=== PATIENT | male | born 1955 | race Two or more races ===

== ENCOUNTER 2018-11-19 10:43 | Inpatient (IN) | payer BC ==
[~2018-11-19] VITALS: Ht 165.1 cm; Wt 88.5 kg
[2018-11-19 14:00] VITALS: BP 127/74
--- NOTE | 2018-11-19 14:00 | NUR ---
QUILL REAMERCOMPUTER DISCOVERY TEACHER NOTES RECEIVED PT FROM [facility] TO ROOM 118(1) BY BÁRBARA.ALERT/ORIENTED X4.ON TELE HR IS 88 WITH SR.ON 4L O2 VIA NC CONTINUOUSLY.NO SOB AND ACUTE DISTRESS NOTED.CAN AMBULATE INDEPENDENTLY WITHOUT ASSISTANCE.NO COMPLICATIONS NOTED.VITAL SIGNS CHECKED AND RECORDED,WNL.SKIN ASSESSMENT IS DONE AND IT IS INTACT.IV LINE PRESENT ON RIGHT FA,AC,LEFT AC G20,SITE IS CLEAN,DRY AND INTACT.NO INFILTRATION NOTED.FAMILY IS AT BEDSIDE.SAFETY IS MAINTAINED AT ALL TIMES.CALL LIGHT IS WITHIN REACH.BED IS IN LOW POSITION AND LOCKED.SIDE RAILS UP.WILL CONTINUE TO MONITOR THE PT CLOSELY.
[2018-11-19] MEDS ORDERED: METF-442 PO (14:38)
[2018-11-19] MEDS ORDERED: NIFE90TA38 PO (14:38)
[2018-11-19] MEDS ORDERED: MULT-24 PO (14:38)
[2018-11-19] MEDS ORDERED: ATOR40TA PO (14:38)
[2018-11-19] MEDS ORDERED: HYDR25TA4 PO (14:38)
[2018-11-19] MEDS ORDERED: ASPI-1169 PO (14:38)
[2018-11-19] MEDS ORDERED: FINA5TAB11 PO (14:38)
[2018-11-19] MEDS ORDERED: ISOS60TA4 PO (14:38)
[2018-11-19] MEDS ORDERED: ONDANSETRON HCL/PF 4 MG/2 ML VIAL IVP PRN (15:00)
[2018-11-19] MEDS ORDERED: Z GUARD REMEDY 2 OZ OINT TP PRN (15:00)
[2018-11-19] MEDS ORDERED: ZOLPIDEM TARTRATE 5 MG TABLET PO PRN (15:00)
[2018-11-19] MEDS ORDERED: MAGNESIUM HYDROXIDE 30 ML UDC PO PRN (15:00)
[2018-11-19] MEDS ORDERED: MAG HYDROX/AL HYDROX/SIMETH 30 ML UDC PO PRN (15:00)
[2018-11-19] MEDS ORDERED: HYDROCODONE/APAP 5/325MG 1 EACH TABLET PO PRN (15:00)
[2018-11-19] MEDS ORDERED: ACETAMINOPHEN 325 MG TABLET PO PRN (15:00)
[2018-11-19] MEDS ORDERED: hydrALAZINE HCL 25 MG TABLET PO PRN (15:30)
[2018-11-19 15:56] LABS: BASOPHILS # (AUTO) 0.1 /CMM (0.0-0.2); BASOPHILS % (AUTO) 0.8 % (0.0-2.0); EOSINOPHILS % (AUTO) 2.7 % (0.0-6.0); HEMATOCRIT 39 % (39-51); HEMOGLOBIN 12.7 g/dL (13.5-17.5); LYMPHOCYTES # (AUTO) 1.5 /CMM (0.8-4.8); LYMPHOCYTES % (AUTO) 14.9 % (20.0-44.0); MEAN CORPUSCULAR HGB CONC 33 g/dl (31.0-36.0); MEAN CORPUSCULAR VOLUME 80 fL (80-96); MONOCYTES % (AUTO) 10.1 % (2.0-12.0); NEUTROPHILS # (AUTO) 7.3 /CMM (1.8-8.9); NEUTROPHILS % (AUTO) 71.5 % (43.0-81.0); PLATELET COUNT (AUTO) 422 /CMM (150-450); RED BLOOD CELL COUNT(AUTO) 4.88 MIL/uL (4.5-6.0); WHITE BLOOD COUNT (AUTO) 10.3 K/uL (4.3-11.0)
[2018-11-19 16:00] VITALS: BP 123/68
[2018-11-19 16:05] LABS: CALCIUM, SERUM 8.7 mg/dL (8.5-10.1); POTASSIUM 3.6 mmol/L (3.5-5.1)
[2018-11-19 16:07] VITALS: BP 123/68
[2018-11-19 16:10] LABS: ALBUMIN 3.6 g/dL (3.4-5.0); BILIRUBIN,TOTAL 0.5 mg/dL (0.2-1.0); MAGNESIUM 2.3 mg/dL (1.8-2.4); PHOSPHORUS 3.2 mg/dL (2.5-4.9); TOTAL PROTEIN, SERUM 7.7 g/dL (6.4-8.2)
[2018-11-19] MEDS ORDERED: DEXTROSE 50%-WATER 50 ML DISP.SYRIN IV PRN (16:30)
[2018-11-19] MEDS ORDERED: *INSULIN REGULAR(HUMULIN R)HUM 100 UNIT/ML VIAL SQ PRN (16:30)
[2018-11-19] MEDS: AZITHROMYCIN 500 MG in IV D5W 250 ML IV SCH (17:33)
[2018-11-19] MEDS: BLOOD SUGAR DIAGNOSTIC 1 EACH STRIP VI SCH ×2 (17:50→22:44)
--- NOTE | 2018-11-19 18:56 | NUR ---
TRAVELING PASSENGER AGENT CLOSING NOTES PT IS LYING ON BED WITH 4L O2 VIA NC CONTINUOS.RESPIRATION IS EVEN AND NON LABORED.ALL THE PM MEDS ARE GIVEN.ENDORSED TO TOPPER PRESS OPERATOR RN FOR YRN.
[2018-11-19 19:20] LABS: APPEARANCE,URINE CLEAR (CLEAR); BILIRUBIN,URINE NEGATIVE (NEGATIVE); BLOOD, URINE NEGATIVE Ery/uL (NEGATIVE); COLOR,URINE YELLOW (YELLOW); KETONES,URINE NEGATIVE (NEGATIVE); LEUKOCYTE ESTERASE ,URINE NEGATIVE (NEGATIVE); NITRITE, URINE NEGATIVE (NEGATIVE); PH,URINE 6.5 (5.0-8.0); PROTEIN,URINE NEGATIVE (NEGATIVE); UGLUCOSE NEGATIVE (NEGATIVE); UROBILINOGEN,URINE 0.2 EU/dL (0.2)
[2018-11-19 20:00] VITALS: BP 117/69
[2018-11-19] MEDS: ATORVASTATIN 40 MG TABLET PO SCH (22:44)
[2018-11-20] VITALS (7 sets, daily range): BP systolic 52–121; BP diastolic 52–70
[2018-11-20 06:27] LABS: BASOPHILS # (AUTO) 0.1 /CMM (0.0-0.2); BASOPHILS % (AUTO) 0.8 % (0.0-2.0); EOSINOPHILS % (AUTO) 12.6 % (0.0-6.0); HEMATOCRIT 38 % (39-51); HEMOGLOBIN 11.9 g/dL (13.5-17.5); LYMPHOCYTES # (AUTO) 1.2 /CMM (0.8-4.8); LYMPHOCYTES % (AUTO) 8.9 % (20.0-44.0); MEAN CORPUSCULAR HGB CONC 31 g/dl (31.0-36.0); MEAN CORPUSCULAR VOLUME 81 fL (80-96); MONOCYTES # (AUTO) 1.6 /CMM (0.1-1.30); MONOCYTES % (AUTO) 11.2 % (2.0-12.0); NEUTROPHILS # (AUTO) 9.4 /CMM (1.8-8.9); NEUTROPHILS % (AUTO) 66.5 % (43.0-81.0); PLATELET COUNT (AUTO) 384 /CMM (150-450); WHITE BLOOD COUNT (AUTO) 14.1 K/uL (4.3-11.0)
[2018-11-20 06:49] LABS: THYROID STIMULATING HORMONE 1.969 uIU/mL (0.358-3.74)
[2018-11-20 06:52] LABS: CALCIUM, SERUM 8.4 mg/dL (8.5-10.1); MAGNESIUM 2.5 mg/dL (1.8-2.4); PHOSPHORUS 2.9 mg/dL (2.5-4.9); POTASSIUM 3.8 mmol/L (3.5-5.1)
--- NOTE | 2018-11-20 07:30 | NUR ---
RN NOTES RECEIVED PATIENT IN BED A/O X4 WITH BREATHING NORMAL, EVEN AND UNLABORED. NO SOB NOTED. NO ACUTE DISTRESS NOTED. TELE MONITOR REVEALS SR, HR=80. IV'S ARE PATENT AND INTACT, NO INFILTRATION NOTED. BOWEL SOUND PRESENT. PULSES PRESENT. KEPT CLEAN, DRY AND COMFORTABLE. ALL NEEDS ATTENDED. SAFETY MEASURE OBSERVED. CALL LIGHT WITH IN REACH. WILL CONT TO MONITOR.
[2018-11-20] MEDS: BLOOD SUGAR DIAGNOSTIC 1 EACH STRIP VI SCH ×4 (08:12→21:31)
[2018-11-20] MEDS: INSULIN REGULAR, HUMAN 100 UNIT/ML 3 ML VIAL SQ PRN (08:17)
[2018-11-20] MEDS: MULTIVITAMINS,THERAGRAN 1 UDTAB TABLET PO SCH (09:10)
[2018-11-20] MEDS: FINASTERIDE (5 MG) 5 MG TABLET PO SCH (09:10)
[2018-11-20] MEDS: CEFTRIAXONE 1 G in IV D5W 50 ML IV SCH (09:10)
[2018-11-20] MEDS: FUROSEMIDE 40 MG/4 ML VIAL IV SCH (09:10)
[2018-11-20] MEDS: CYANOCOBALAMIN 500 MCG TABLET PO SCH (09:11)
[2018-11-20] MEDS: HYDROCHLOROTHIAZIDE 25 MG TABLET PO SCH (09:11)
[2018-11-20] MEDS: ASPIRIN 81 MG TAB.CHEW PO SCH (09:11)
[2018-11-20] MEDS: FOLIC ACID 1 MG TABLET PO SCH (09:11)
[2018-11-20] MEDS: ISOSORBIDE MONONITRATE (30MG) 30 MG TAB.SR.24H PO SCH (09:25)
[2018-11-20] MEDS: NIFEdipine XL (30MG) 30 MG TAB PO SCH (09:25)
[2018-11-20] MEDS: METFORMIN 500 MG TABLET PO SCH ×2 (12:00→17:41)
[2018-11-20] MEDS: LOSARTAN POTASSIUM 50 MG TABLET PO SCH (12:01)
--- NOTE | 2018-11-20 16:57 | NUR ---
RN NOTES RELAYED TROPONIN RESULTS TO DR MELLO WITH NNO.
[2018-11-20] MEDS: LACTOBACILLUS RHAMNOSUS GG 1 EACH CAP.SPRINK PO SCH (17:40)
[2018-11-20] MEDS: AZITHROMYCIN 500 MG in IV D5W 250 ML IV SCH (18:41)
--- NOTE | 2018-11-20 19:23 | NUR ---
RN NOTES PATIENT ENDORSED TO NEXT SHIFT IN STABLE CONDITION FOR CONTINUITY OF CARE. WILL CONT TO MONITOR.
[2018-11-20] MEDS: ATORVASTATIN 40 MG TABLET PO SCH (21:30)
[2018-11-21 04:00] VITALS: BP 107/60
[2018-11-21 06:28] LABS: BASOPHILS # (AUTO) 0.1 /CMM (0.0-0.2); BASOPHILS % (AUTO) 0.8 % (0.0-2.0); EOSINOPHILS % (AUTO) 17.5 % (0.0-6.0); HEMATOCRIT 36 % (39-51); HEMOGLOBIN 11.6 g/dL (13.5-17.5); LYMPHOCYTES # (AUTO) 2.4 /CMM (0.8-4.8); MEAN CORPUSCULAR HGB CONC 32 g/dl (31.0-36.0); MEAN CORPUSCULAR VOLUME 81 fL (80-96); MONOCYTES # (AUTO) 1.3 /CMM (0.1-1.30); NEUTROPHILS # (AUTO) 6.2 /CMM (1.8-8.9); NEUTROPHILS % (AUTO) 50.7 % (43.0-81.0); PLATELET COUNT (AUTO) 388 /CMM (150-450); RED BLOOD CELL COUNT(AUTO) 4.47 MIL/uL (4.5-6.0); WHITE BLOOD COUNT (AUTO) 12.1 K/uL (4.3-11.0)
[2018-11-21 06:31] LABS: CALCIUM, SERUM 8.4 mg/dL (8.5-10.1); MAGNESIUM 2.3 mg/dL (1.8-2.4); PHOSPHORUS 7.9 mg/dL (2.5-4.9); POTASSIUM 3.6 mmol/L (3.5-5.1)
[2018-11-21 08:00] VITALS: BP 116/89
[2018-11-21] MEDS: BLOOD SUGAR DIAGNOSTIC 1 EACH STRIP VI SCH ×4 (08:16→22:19)
[2018-11-21] MEDS: FUROSEMIDE 40 MG/4 ML VIAL IV SCH (09:06)
[2018-11-21] MEDS: CEFTRIAXONE 1 G in IV D5W 50 ML IV SCH (09:10)
[2018-11-21] MEDS: ISOSORBIDE MONONITRATE (30MG) 30 MG TAB.SR.24H PO SCH (09:15)
[2018-11-21] MEDS: NIFEdipine XL (30MG) 30 MG TAB PO SCH (09:16)
[2018-11-21] MEDS: MULTIVITAMINS,THERAGRAN 1 UDTAB TABLET PO SCH (09:16)
[2018-11-21] MEDS: LOSARTAN POTASSIUM 50 MG TABLET PO SCH (09:16)
[2018-11-21] MEDS: METFORMIN 500 MG TABLET PO SCH ×2 (09:17→18:06)
[2018-11-21] MEDS: CYANOCOBALAMIN 500 MCG TABLET PO SCH (09:17)
[2018-11-21] MEDS: ASPIRIN 81 MG TAB.CHEW PO SCH (09:17)
[2018-11-21] MEDS: LACTOBACILLUS RHAMNOSUS GG 1 EACH CAP.SPRINK PO SCH ×2 (09:18→18:06)
[2018-11-21] MEDS: FOLIC ACID 1 MG TABLET PO SCH (09:19)
[2018-11-21] MEDS: FINASTERIDE (5 MG) 5 MG TABLET PO SCH (09:19)
[2018-11-21] MEDS: HYDROCHLOROTHIAZIDE 25 MG TABLET PO SCH (09:19)
[2018-11-21] MEDS: CARVEDILOL 12.5 MG TABLET PO SCH ×2 (09:30→21:36)
[2018-11-21 16:00] VITALS: BP 98/54
[2018-11-21] MEDS ORDERED: LACTOBACILLUS RHAMNOSUS GG 1 EACH CAP.SPRINK PO SCH (17:00)
[2018-11-21] MEDS: AZITHROMYCIN 500 MG in IV D5W 250 ML IV SCH (18:06)
--- NOTE | 2018-11-21 19:05 | NUR ---
MS RN NOTES PT ENDORSED TO PM SHIFT FOR YRN. PER DR MELLO, HOLD ALL BP MEDS EXCEPT BETA BLOCKERS UNTIL CT ANGIOGRAM TMRW. PT IS STABLE. NO S/SX OF DISTRESS. BED IN LOCKED/LOWEST POSITION. CALL LIGHT IN REACH.
[2018-11-21 20:00] VITALS: BP 114/62
[2018-11-21] MEDS: ATORVASTATIN 40 MG TABLET PO SCH (21:36)
[2018-11-22] VITALS (7 sets, daily range): BP systolic 99–114; BP diastolic 59–80
[2018-11-22 06:32] LABS: BASOPHILS # (AUTO) 0.1 /CMM (0.0-0.2); BASOPHILS % (AUTO) 1.3 % (0.0-2.0); EOSINOPHILS % (AUTO) 16.7 % (0.0-6.0); HEMATOCRIT 38 % (39-51); HEMOGLOBIN 12.3 g/dL (13.5-17.5); LYMPHOCYTES # (AUTO) 2.2 /CMM (0.8-4.8); LYMPHOCYTES % (AUTO) 19.7 % (20.0-44.0); MEAN CORPUSCULAR HGB CONC 32 g/dl (31.0-36.0); MEAN CORPUSCULAR VOLUME 81 fL (80-96); MONOCYTES # (AUTO) 1.1 /CMM (0.1-1.30); MONOCYTES % (AUTO) 9.7 % (2.0-12.0); NEUTROPHILS # (AUTO) 5.8 /CMM (1.8-8.9); NEUTROPHILS % (AUTO) 52.6 % (43.0-81.0); PLATELET COUNT (AUTO) 414 /CMM (150-450); RED BLOOD CELL COUNT(AUTO) 4.75 MIL/uL (4.5-6.0)
--- NOTE | 2018-11-22 07:04 | NUR ---
RN NOTE PATIENT IS STABLE, NO DISTRESS NOTED, KEPT NPO AFTER MIDNIGHT, WILL ENDORSE TO AM SHIFT TO CONTINUE CARE
[2018-11-22 07:23] LABS: CREATININE 0.9 mg/dL (0.6-1.3); MAGNESIUM 2.1 mg/dL (1.8-2.4); POTASSIUM 3.5 mmol/L (3.5-5.1)
[2018-11-22] MEDS: BLOOD SUGAR DIAGNOSTIC 1 EACH STRIP VI SCH ×4 (07:30→21:25)
[2018-11-22] MEDS: ISOSORBIDE MONONITRATE (30MG) 30 MG TAB.SR.24H PO SCH (09:00)
[2018-11-22] MEDS: FINASTERIDE (5 MG) 5 MG TABLET PO SCH (09:00)
[2018-11-22] MEDS: MULTIVITAMINS,THERAGRAN 1 UDTAB TABLET PO SCH (09:00)
[2018-11-22] MEDS: LACTOBACILLUS RHAMNOSUS GG 1 EACH CAP.SPRINK PO SCH ×2 (09:00→17:28)
[2018-11-22] MEDS: METFORMIN 500 MG TABLET PO SCH ×2 (09:00→17:28)
[2018-11-22] MEDS: FOLIC ACID 1 MG TABLET PO SCH (09:00)
[2018-11-22] MEDS: NIFEdipine XL (30MG) 30 MG TAB PO SCH (09:00)
[2018-11-22] MEDS: LOSARTAN POTASSIUM 50 MG TABLET PO SCH (09:00)
[2018-11-22] MEDS: ASPIRIN 81 MG TAB.CHEW PO SCH ×2 (09:00→09:04)
[2018-11-22] MEDS: CYANOCOBALAMIN 500 MCG TABLET PO SCH (09:00)
[2018-11-22] MEDS: HYDROCHLOROTHIAZIDE 25 MG TABLET PO SCH (09:00)
[2018-11-22] MEDS ORDERED: AZIT250T13 PO (09:02)
[2018-11-22] MEDS ORDERED: LACT1CAP72 PO (09:02)
[2018-11-22] MEDS ORDERED: CARV12.52 PO (09:02)
[2018-11-22] MEDS: CARVEDILOL 12.5 MG TABLET PO SCH ×2 (09:23→21:27)
[2018-11-22] MEDS ORDERED: IOHEXOL-350 100 ML VIAL IV ONE (12:30)
[2018-11-22] MEDS ORDERED: CT SWABBABLE VALVE TRANS SET 1 EA INFUS.SET MC ONE (12:31)
[2018-11-22] MEDS ORDERED: IV NS 0.9% 500 ML IV ONE (12:31)
[2018-11-22] MEDS ORDERED: IV NS 0.9% 250 ML IV ONE (12:31)
[2018-11-22] MEDS ORDERED: METOPROLOL TARTRATE INJ 5 MG/5 ML AMPUL ONE ×2 (12:31→13:10)
--- NOTE | 2018-11-22 15:06 | NUR ---
CT ANGIO HEART WITH 3D IMAGES WERE ORDERED, BUT AT THE MIDDLE OF THE SCAN, ECG MACHINE MALFUNCTION. INFORMED RN (RENETTA) AND THE NURSING TRAFFIC CONTROL SUPERVISOR (THOMAS).
[2018-11-22] MEDS: INSULIN REGULAR, HUMAN 100 UNIT/ML 3 ML VIAL SQ PRN (17:36)
[2018-11-22] MEDS ORDERED: AZITHROMYCIN 250 MG TABLET PO SCH (18:00)
--- NOTE | 2018-11-22 18:54 | NUR ---
rn end notes no significant change noted. cardiac procedure not completed. no chest pain. sinus rhythm on the monitor hr=66. all needs met. will endorse to next shift rn for continuity of care in stable condition
--- NOTE | 2018-11-22 19:30 | NUR ---
RECEIVED PATIENT IN BED AWAKE, AO X 3, ABLE TO MAKE NEEDS KNOWN. NO ACUTE DISTRESS NOTED. SPO2 WNL ON ROOM AIR. DENIES ANY PAIN AT THIS TIME. IV SITES PATENT, INTACT; FLUSHED. SAFETY REMINDERS GIVEN. ON LOW BED WITH BILATERAL UPPER SIDE RAILS UP. CALL DAVIDSON WITHIN EASY REACH. WILL CONTINUE TO MONITOR.
[2018-11-22] MEDS: ATORVASTATIN 40 MG TABLET PO SCH (21:27)
[2018-11-23] VITALS (54 sets, daily range): BP systolic 81–164; BP diastolic 50–104
--- NOTE | 2018-11-23 00:04 | NUR ---
PATIENT C/O DYSPEPSIA; MAALOX GIVEN. WILL CONTINUE TO MONITOR.
--- NOTE | 2018-11-23 00:20 | NUR ---
PATIENT FOUND LYING IN BED UNRESPONSIVE WITH NO PULSE. (PATIENT WAS LAST SEEN GOING TO THE BATHROOM.) CPR WAS INITIATED. CODE AJMES CALLED. SEE CODE BLUE DOCUMENTATION.
[2018-11-23] MEDS ORDERED: ROCURONIUM BROMIDE 50 MG/5 ML ONE (00:35)
[2018-11-23] MEDS ORDERED: EPINEPHRINE (1:10,000) SYRINGE 1 MG/10 ML DISP.SYRIN ONE (00:35)
[2018-11-23] MEDS ORDERED: LORAZEPAM INJ 2 MG/ML VIAL ONE (00:37)
--- NOTE | 2018-11-23 00:38 | NUR ---
SON PARUL WAS NOTIFIED OF PATIENT'S CURRENT SITUATION. HE SAID THAT HE WILL NOTIFY HIS SISTER.
--- NOTE | 2018-11-23 00:44 | NUR ---
DAUGHTER YVETTE CALLED THE UNIT AND WAS INFORMED OF THE SITUATION AND THAT PATIENT WILL BE TRANSFERRED TO ICU.
--- NOTE | 2018-11-23 00:46 | NUR ---
DR. MELLO WAS NOTIFIED THAT PATIENT WAS FOUND UNRESPONSIVE, CPR INITIATED, CODE BLUE CALLED, PATIENT TRANSFERRING TO ICU. DR. MELLO ORDERED STAT CHEM 7 AND MAG; NOTED AND CARRIED OUT.
--- NOTE | 2018-11-23 00:50 | NUR ---
ICU/RN-TRANSPORTED AND RECEIVED PT. FROM MS-1( ALTHOUGH PT. ON CONTINUOUS EKG MONITORING) BY BED ACCOMPANIED BY CODE TEAM PER ACLS PROTOCOL. S/P CODE BLUE SECONDARY TO CARDIOPULMONARY ARREST. ROUTINE ICU ADMISSION CARE INITIATED. Addendum: 11/23/18 at 0359 by ABDIEL PAUL RN CONTINUATION- PT. UNRESPONSIVE, PUPILS ARE SLUGGISH AT 2.0 GREGORIO. NO SARMIENTO, WILL CONTINUE TO MONITOR PER PROTOCOL. PT. IS A FULL CODE.
--- NOTE | 2018-11-23 00:55 | NUR ---
RESPONDED TO CODE BLUE AND DID CPR. PT WAS INTUBATED AT 0037 WITH A 7.5 ETT 26 AT THE LIP. ETCO2 HAD POSITIVE COLOR CHANGE AND AUDIBLE BILATERAL BREATH SOUNDS HEARD. PT TRANSPORTED TO ICU AT 0050. PATIENT PLACED ON AC 16, 500, 100% +5. ABG TO BE DONE 30 MINS AFTER BEING PLACED ON VENT. SUCTION MODERATE AMOUNT OF THICK PINK TINGED SECRETIONS. VENT PLUGGED INTO RED OUTLET WITH AMBU BAG AT BEDSIDE. ALARMS ARE AUDIBLE. NO RESP DISTRESS AT THIS TIME. WILL CONT TO MONITOR PT.
[2018-11-23 01:16] LABS: CALCIUM, SERUM 8.1 mg/dL (8.5-10.1); CREATININE 1.4 mg/dL (0.6-1.3); POTASSIUM 3.7 mmol/L (3.5-5.1)
[2018-11-23 01:17] LABS: MAGNESIUM 2.3 mg/dL (1.8-2.4)
--- NOTE | 2018-11-23 01:30 | NUR ---
ICU/RN- XRAY DR. ANDERS CALLED REGARDING ETT PLACEMENT, SUGGESTED TO PULL ETT BACK BY 2CM. WILL NOTIFY MALIK ACNP FOR ORDERS. RT EMIGDIO MADE AWARE.
--- NOTE | 2018-11-23 01:40 | NUR ---
ICU/RN- FAMILY HERE TO SEE PT. PT. STATUS AND PLAN OF CARE DISCUSSED WITH SAME, BOTH DAUGHTER AND SON VERBALIZED UNDERSTANDING. IS HUNGARIAN SPEAK.
--- NOTE | 2018-11-23 01:50 | NUR ---
ICU/RN- ABG RESULTS IN, DRAWN EARLIER BY RT EMIGDIO AT 0148, AWAITING FOR ACNP MALIK TO CALL BACK. WILL FOLLOW UP.
[2018-11-23 01:54] LABS: ABG BASE EXCESS -4.6 mmol/L; ABG OXYGEN SATURATION 94.4 % (92.0-98.5); ABG PCO2 52.1 mmHg (35.0-45.0); ABG PO2 88.7 mmHg (75.0-100.0); AaDO2 572.2 mmHg; COHb 0.6 % (0.5-1.5); MetHb 0.5 % (0.0-1.5); O2Hb 93.4 % (94.0-97.0); PEEP,BG 5 cm H2O; SITE, ABG Right Radial; VENT MODE, BG AC 16; VT, ABG 500 mL
--- NOTE | 2018-11-23 02:00 | NUR ---
ICU/RN-ACNP MALIK CALLED BACK AWARE OF ABG RESULTS, W/ ORDERS NOTED. PT. NOTED TO HAVE SEIZURE LIKE ACTIVITY, JERKY MOVEMENT OF BOTH UPPER AND LOWER EXTREMITIES W/ ORDERS NOTED. WILL MONITOR PER PROTOCOL.
[2018-11-23] MEDS: PROPOFOL 100 ML IV PRN ×3 (02:28→12:21)
--- NOTE | 2018-11-23 02:30 | NUR ---
ICU/RN- PT. GAGGING, W/ OFF AND ON GENERALIZED JERKY MOVEMENT, DIPRIVAN DRIP STARTED AT 5MCG/KG/MIN. PER PROTOCOL. WILL TITRATE ACCORDINGLY TO OBTAIN SAS 3/10
--- NOTE | 2018-11-23 02:40 | NUR ---
ICU/RN- PT. CONTINUE TO BE AGITATED, GAGGING SARMIENTO SPONTANEOUSLY, FAMILY AT THE BEDSIDE, GREGORIO. SOFT WRIST RESTRAINTS INITIATED PER PROTOCOL. FAMILY EDUCATED ON INDICATION OF THE RESTRAINTS, VERBALIZED UNDERSTANDING AND IN AGREEMENT . WILL CONTINUE TO MONITOR PER PROTOCOL.
--- NOTE | 2018-11-23 02:41 | NUR ---
ICU/RN- RT EMIGDIO AND RT LINDY HERE, PULLED ETT BY 2 CM, NOW AT 24 CM AT THE LIP PER MD ORDER.
--- NOTE | 2018-11-23 02:47 | NUR ---
PT'S ETT WAS PULLED BACK 2 CM PER MD ORDER. ETT IS NOW AT 24 CM AT THE LIP. TIFFANIE MEADOWS NOTIFIED.
--- NOTE | 2018-11-23 03:26 | NUR ---
CHANGED THE RATE TO 18 PER MD ORDER.
--- NOTE | 2018-11-23 03:55 | NUR ---
ICU/RN- PT. REMAINS CRITICALLY ILL, ON THE VENT, SEDATED, W/ PROPOFOL AT 30MCG/KG/MIN. FAMILY AT THE BEDSIDE. REPORT GIVEN TO TIFFANIE MOORE.
--- NOTE | 2018-11-23 04:00 | NUR ---
BINGO CASHIER NOTE RECEIVED REPORT FROM CHARGE NURSE FOR CONTINUITY OF CARE. PT RECEIVED SEDATED AND MECHANICALLY VENTILATED WITH FAMILY AT BEDSIDE.
--- NOTE | 2018-11-23 05:19 | NUR ---
DECREASE FI02 TO 80% Addendum: 11/23/18 at 0519 by LINDY REDMOND RT Amended: Links added.
--- NOTE | 2018-11-23 07:34 | NUR ---
NURSE CASE MANAGEMENT NOTE NO ACUTE DISTRESS NOTED WITH THE PT. SEDATED AND MECHANICALLY VENTILATED. ETT 7.5 AND 24CM@ THE LIP. BREATHING UNLABORED. HOB ELEVATED AND ON ASPIRATION PRECAUTIONS. SUCTIONED NEEDED. TELE-SR 80'S. NGT R NARE CLAMPED WITH POSITIVE PLACEMENT. IV'S IN PLACE WITH DIPRIVAN INFUSING AT 25MCG/KG/MIN. BILATERAL SOFT WRIST RESTRAINTS IN PLACE WITH PALPABLE RADIAL PULSES AND NO DISCOLORATION NOTED. NEWTON CATHETER IN PLACE AND DRAINING BY GRAVITY. WILL ENDORSE TO NEXT SHIFT FOR CONTINUITY OF CARE.
[2018-11-23] MEDS: BLOOD SUGAR DIAGNOSTIC 1 EACH STRIP VI SCH ×4 (08:11→21:12)
[2018-11-23] MEDS: CARVEDILOL 12.5 MG TABLET PO SCH ×2 (09:00→21:12)
[2018-11-23] MEDS: FOLIC ACID 1 MG TABLET PO SCH (09:00)
[2018-11-23] MEDS: CYANOCOBALAMIN 500 MCG TABLET PO SCH (09:00)
[2018-11-23] MEDS: MULTIVITAMINS,THERAGRAN 1 UDTAB TABLET PO SCH (09:00)
[2018-11-23] MEDS: METFORMIN 500 MG TABLET PO SCH ×2 (09:00→17:00)
[2018-11-23] MEDS: LACTOBACILLUS RHAMNOSUS GG 1 EACH CAP.SPRINK PO SCH ×2 (09:00→17:00)
[2018-11-23] MEDS: ASPIRIN 81 MG TAB.CHEW PO SCH (09:00)
[2018-11-23] MEDS: FINASTERIDE (5 MG) 5 MG TABLET PO SCH (09:00)
[2018-11-23 09:04] LABS: ABG BASE EXCESS 0.6 mmol/L; ABG OXYGEN SATURATION 98.1 % (92.0-98.5); ABG PCO2 38.9 mmHg (35.0-45.0); ABG PH 7.424 (7.350-7.450); ABG PO2 130.9 mmHg (75.0-100.0); AaDO2 398.7 mmHg; MetHb 0.5 % (0.0-1.5); O2Hb 97.6 % (94.0-97.0); SITE, ABG Left Radial; VENT MODE, BG AC 18 500 +5 80%
--- NOTE | 2018-11-23 09:15 | NUR ---
ICU/RN: Dr Matthews at bedside; updated on pt status. Family at bedside; POC dw daughter. For weaning trials this afternoon. Orders noted and carried out.
--- NOTE | 2018-11-23 10:30 | NUR ---
ICU/RN: Spoke with Dr Kidd telephonically; updated on pt status - S/P Code blue, Torsades noted last night, may require EP and ICD per Dr Schmidt. Per Dr Kidd "I will see the patient."
[2018-11-23] MEDS ORDERED: DC PROPOFOL WHEN EXTUBATED XX PRN (11:00)
--- NOTE | 2018-11-23 14:00 | NUR ---
ICU/RN: Pt currently off sedation, following commands, no distress. Placed on SIMV mode per Dr Matthews's orders. Daughter at bedside. In agreement with POC.
[2018-11-23 14:42] LABS: ABG BASE EXCESS -0.7 mmol/L; ABG OXYGEN SATURATION 96.9 % (92.0-98.5); ABG PCO2 31.8 mmHg (35.0-45.0); ABG PH 7.464 (7.350-7.450); ABG PO2 94.4 mmHg (75.0-100.0); AaDO2 226.3 mmHg; COHb 0.1 % (0.5-1.5); MetHb 0.4 % (0.0-1.5); O2Hb 96.4 % (94.0-97.0); SITE, ABG Right Femoral; VENT MODE, BG SIMV 4 500 PS12 50 +5
--- NOTE | 2018-11-23 14:45 | NUR ---
Pt extubated and placed on O2 via nasal cannula per MD order. Pt is unlabored and showing no signs of respiratory distress at this time. Keep SpO2 greater or equal to 92% per Dr. Matthews. Addendum: 11/23/18 at 1502 by ANNELIESE DOMINGUEZ RT Amended: Links added.
--- NOTE | 2018-11-23 14:45 | NUR ---
ICU/RN: ABG reviewed, pt extubated per Dr Matthews's orders. On O2 3L/min via NC tolerating well. Denies pain and discomfort. Family at bedside. Pt educated, nodded head in agreement.
[2018-11-23 15:34] LABS: APPEARANCE,URINE CLOUDY (CLEAR); BILIRUBIN,URINE NEGATIVE (NEGATIVE); BLOOD, URINE 3+ Ery/uL (NEGATIVE); COLOR,URINE YELLOW (YELLOW); KETONES,URINE NEGATIVE (NEGATIVE); LEUKOCYTE ESTERASE ,URINE NEGATIVE (NEGATIVE); NITRITE, URINE NEGATIVE (NEGATIVE); PROTEIN,URINE 1+ mg/dl (NEGATIVE); UGLUCOSE NEGATIVE (NEGATIVE); UROBILINOGEN,URINE 0.2 EU/dL (0.2)
[2018-11-23 16:06] LABS: BACTERIA,URINE None seen /HPF (None Seen); SQUAMOUS EPITHELIAL CELL,UR Rare /HPF (None Seen); URINE AMORPHOUS URATE Many /HPF (None Seen); WBC,URINE 0-2 /HPF (0-3)
[2018-11-23 16:21] LABS: CREATININE, URINE 269.2 MG/DL (30.0-125.0); URINE SODIUM, RANDOM < 5 mmol/l (40-220); URINE TOTAL PROTEIN 53.1 mg/dL (0-11.9)
[2018-11-23] MEDS ORDERED: AMIODARONE 900 MG in IV D5W 482 ML IV PRN (16:30)
--- NOTE | 2018-11-23 16:30 | NUR ---
ICU/RN: 1617 - noted Vfib on monitor, while pt speaking with family at bedside. Code blue initiated, ACLS protocol followed. Refer to Code Blue Documentation form for record. Dr Matthews at bedside, spoke with Dr Cramer and updated Dr Schmidt telephonically. Pt with mental status at baseline, per ER MD hold off intubation. New orders noted and carried out. Pending receipt of Amiodarone drip. Family now at bedside and educated throughout. In agreement with POC. Addendum: 11/23/18 at 1730 by LUIS ANTONIO BRITO RN Dr Seth, primary MD updated.
[2018-11-23 16:35] LABS: EOSINOPHIL,URINE None Seen
--- NOTE | 2018-11-23 17:30 | NUR ---
ICU/RN: Pt refused po intake, requests ice chips only. Metformin and po meds held per pt request. Educated.
--- NOTE | 2018-11-23 19:30 | NUR ---
SQL TECH NOTE PT RECEIVED A/O X4 AND ABLE TO VERBALIZE NEEDS WITH FAMILY AT BEDSIDE. ON 3L OF O2 VIA NC AND SATURATING 98%. BREATHING UNLABORED. HOB ELEVATED. C/O SLIGHT CHEST PRESSURE BUT BREATHING REGULAR. OFFERED TO REPOSITION AND PT REFUSED AT THIS TIME. PT ASKED FOR ICE CHIPS AND JUICE. TELE-SR 85. IV RAC WITH AMIO DRIP INFUSING @ 1MG/MIN. NEWTON CATHETER IN PLACE AND DRAINING. CALL LIGHT WITHIN REACH. WILL MONITOR.
--- NOTE | 2018-11-23 20:30 | NUR ---
ASPHALT PAVING MACHINE OPERATOR NOTE SPOKE WITH PT AT BEDSIDE. DR. ARCOS REQUESTING TRANSFER TO HIGHER LEVEL OF CARE TO [facility] WITH ACCEPTING DR. DARDEN. WILL CONTACT CASE MANAGEMENT FOR FURTHER ASSISTANCE FOR TRANSFER.
--- NOTE | 2018-11-23 20:45 | NUR ---
currently in ICU, had an episode of torsade last night,coded and intubated. He was extubated this morning but coded back again and reintubated. Patient is currently extubated at 2:45pm and tolerated O2 3L/NC. He is currently on amiodarone gtt. Was seen by EPS and requested higher level of care transfer to [facility] for coronary angiogram with Dr. Skip Velarde [phone] as accepting MD. Spoke with Azalia nursing supervisor cytogenetic laboratory at [facility] [phone], has no ICU bed available tonight. Dr. Velarde was aware according to Azalia and will need follow up in am for bed availability. Will continue to monitor patient in ICU tonight and follow up with [facility] in am. Addendum: 11/23/18 at 2201 by JOSEMANUEL EDMONDS RN Amended: Links added.
--- NOTE | 2018-11-23 21:00 | NUR ---
ELECTROPHYSIOLOGY TECHNOLOGIST NOTE JOSEMANUEL FROM CASE MANAGEMENT AWARE OF TRANSFER FOR CORONARY ANGIOGRAM. MARCELO NURSING MACHINE II CUTTER FROM [facility] AWARE OF TRANSFER REQUEST WITH NO ICU BED AVAILABLE AT THIS TIME. INFORMED NURSE TO HAVE CASE MANAGEMENT FOLLOW UP IN THE AM.
[2018-11-23] MEDS: ATORVASTATIN 40 MG TABLET PO SCH (21:12)
--- NOTE | 2018-11-23 23:00 | NUR ---
GOVERNMENT PROFESSOR NOTE DECREASED AMIO FROM 1MG/MIN TO 0.5MG/MIN PER PROTOCOL. TELE-SR 80'S. WILL MONITOR.
[2018-11-24] VITALS (18 sets, daily range): BP systolic 108–146; BP diastolic 77–99
[2018-11-24 04:47] LABS: BASOPHILS # (AUTO) 0.1 /CMM (0.0-0.2); BASOPHILS % (AUTO) 0.3 % (0.0-2.0); EOSINOPHILS % (AUTO) 0.1 % (0.0-6.0); HEMATOCRIT 39 % (39-51); HEMOGLOBIN 12.2 g/dL (13.5-17.5); LYMPHOCYTES # (AUTO) 1.4 /CMM (0.8-4.8); LYMPHOCYTES % (AUTO) 9.4 % (20.0-44.0); MEAN CORPUSCULAR HGB CONC 31 g/dl (31.0-36.0); MEAN CORPUSCULAR VOLUME 82 fL (80-96); MONOCYTES # (AUTO) 1.7 /CMM (0.1-1.30); MONOCYTES % (AUTO) 11.4 % (2.0-12.0); NEUTROPHILS # (AUTO) 11.8 /CMM (1.8-8.9); NEUTROPHILS % (AUTO) 78.8 % (43.0-81.0); PLATELET COUNT (AUTO) 439 /CMM (150-450); RED BLOOD CELL COUNT(AUTO) 4.79 MIL/uL (4.5-6.0)
[2018-11-24 04:50] LABS: ALBUMIN 3.4 g/dL (3.4-5.0); BILIRUBIN,TOTAL 0.7 mg/dL (0.2-1.0); CALCIUM, SERUM 8.7 mg/dL (8.5-10.1); CREATININE 1.6 mg/dL (0.6-1.3); PHOSPHORUS 4.7 mg/dL (2.5-4.9); TOTAL PROTEIN, SERUM 7.7 g/dL (6.4-8.2)
--- NOTE | 2018-11-24 06:00 | NUR ---
ENTRY SPECIALISTS NOTE RECEIVED CRITICAL VALUE TROP 12.796. LEFT MESSAGE TO SOURCING ASSOCIATE ASHA MALIK VETERINARIAN POULTRY. WILL FOLLOW UP.
--- NOTE | 2018-11-24 06:30 | NUR ---
PARTS ORDER AND STOCK CLERK NOTE LEFT MESSAGE TO FLUME TENDER ASHA MOTA AGAIN FOR CRITICAL LAB OF TROP. WILL FOLLOW UP
[2018-11-24] MEDS: BLOOD SUGAR DIAGNOSTIC 1 EACH STRIP VI SCH ×3 (08:20→17:55)
[2018-11-24 08:22] LABS: ABG OXYGEN SATURATION 95.4 % (92.0-98.5); ABG PCO2 35.6 mmHg (35.0-45.0); ABG PH 7.456 (7.350-7.450); AaDO2 160.3 mmHg; COHb 0.1 % (0.5-1.5); MetHb 0.5 % (0.0-1.5); O2Hb 94.8 % (94.0-97.0); SITE, ABG Right Radial; VENT MODE, BG Nasal Cannula
[2018-11-24] MEDS: MULTIVITAMINS,THERAGRAN 1 UDTAB TABLET PO SCH (09:00)
[2018-11-24] MEDS: FINASTERIDE (5 MG) 5 MG TABLET PO SCH (09:00)
[2018-11-24] MEDS: LACTOBACILLUS RHAMNOSUS GG 1 EACH CAP.SPRINK PO SCH ×2 (09:00→16:12)
[2018-11-24] MEDS: CARVEDILOL 12.5 MG TABLET PO SCH (09:00)
[2018-11-24] MEDS: CYANOCOBALAMIN 500 MCG TABLET PO SCH (09:00)
[2018-11-24] MEDS: FOLIC ACID 1 MG TABLET PO SCH (09:00)
[2018-11-24] MEDS: ASPIRIN 81 MG TAB.CHEW PO SCH (09:00)
--- NOTE | 2018-11-24 09:30 | NUR ---
RN NOTE 0715: Received patient A/Ox3. Noted with generalized weakness, does not want to move much at this time. Awaiting for transfer to other acute hospital per Dr. Kidd. S/E by Dr. Schmidt, no new order at this time. SR 70-80's on the monitor. PIVs intact. Moya cath intact, noted with clear yellow urine drained to BSD. Patient connected to defib pads for now for SP cardiac arrest x2. 0815: Spoke with Marcelle CHRISTOPHER said still no bed available in [place], she is still FF: up. Patient and daughter at bedside made aware. Daughter spoke with CANDI personally. Patient refused breakfast, held PO meds for preparation of any procedure. Patient agreed. 0830: S/E by Dr. Matthews, daughter at bedside. No new order at this time. 0930: No any significant changes noted at this time. Kept clean, warm, dry and comfortable.
[2018-11-24] MEDS ORDERED: Sodium Bicarbonate 150 MEQ in IV D5W 1,000 ML IV PRN (11:00)
--- NOTE | 2018-11-24 13:48 | NUR ---
RN NOTE 1345: Report given to Karla MORENO in [place] ICU [phone]. All questions were answered. Updated the patient and family at bedside re: the transfer. Per CM, ambulance for lease picker will be about [phone].
--- NOTE | 2018-11-24 14:54 | NUR ---
RN NOTE Spoke with Dr. Schmidt, made aware Amio drip to be done about 1500, and patient will be transferred expected by 1500. Per MD, may DC Amio drip, and keep the pads on for the transfer.
[2018-11-24] MEDS ORDERED: Magnesium 1 GM/2 ML VIAL IV ONE (17:24)
[2018-11-24] MEDS ORDERED: AMIODARONE 150 MG/3 ML VIAL IV ONE (17:24)
--- NOTE | 2018-11-24 17:57 | NUR ---
RN NOTE 1700: Followed up with CM re the time of peanut picker, ambulance kept on changing timing (x3), kept patient and family updated. 1725: Discharged patient in good condition, VSS. NSR 70's on the monitor, report given to Anish KELLEY. at bedside. PIVs intact. Moya cath intact. On 3LPM of O2 via NC, 95% sat.
[2018-11-24] MEDS ORDERED: ACETYLCYSTEINE 20% ORAL SOLN 6,000 MG/30 ML VIAL PO SCH (21:00)
== END 2018-11-24 17:25 | disposition short-term general hospital (02) | DRG 208 ==
LOC: TELE 13:50 → TELE1 14:08 → MEDSG1 11-20 20:08 → ICU 11-23 00:46
PROVIDERS: ADMIT Student in an Organized Health Care Education/Training Program; ATTEND Internal Medicine
DX: J96.01 Acute respiratory failure with hypoxia (principal); I46.9 Cardiac arrest, cause unspecified; I21.A1 Myocardial infarction type 2; J15.6 Pneumonia due to other Gram-negative bacteria; N17.0 Acute kidney failure with tubular necrosis; I50.43 Acute on chronic combined systolic (congestive) and diastolic (congestive) heart failure; I49.01 Ventricular fibrillation; E87.2 Acidosis; I13.0 Hypertensive heart and chronic kidney disease with heart failure and stage 1 through stage 4 chronic kidney disease, or unspecified chronic kidney disease; J98.11 Atelectasis; I11.0 Hypertensive heart disease with heart failure; I16.0 Hypertensive urgency; E78.5 Hyperlipidemia, unspecified; E11.22 Type 2 diabetes mellitus with diabetic chronic kidney disease; N18.9 Chronic kidney disease, unspecified; Z87.891 Personal history of nicotine dependence; N40.0 Benign prostatic hyperplasia without lower urinary tract symptoms; E87.6 Hypokalemia; E86.1 Hypovolemia; F10.129 Alcohol abuse with intoxication, unspecified; Y90.9 Presence of alcohol in blood, level not specified; Z98.890 Other specified postprocedural states; Z82.49 Family history of ischemic heart disease and other diseases of the circulatory system; Z79.82 Long term (current) use of aspirin; Z79.84 Long term (current) use of oral hypoglycemic drugs; Z79.899 Other long term (current) drug therapy; G47.33 Obstructive sleep apnea (adult) (pediatric)
CPT/HCPCS: 31720; 36415; 36600; 71045-TC; 80048-TC; 80053-TC; 80061-TC; 81000-TC; 82570-TC; 82803-TC; 82962-TC; 83605-TC; 83735-TC; 83880; 84100-TC; 84155-TC; 84300-TC; 84443-TC; 84484-TC; 85025-TC; 85610-TC; 87040-TC; 87070-TC; 87081-TC; 87086-TC; 92950-TC; 93307-TC; 93970-TC; 94002-TC; 94640-TC; 94799-TC; 99082-TC; G0378; J0171; J0282; J0456; J0696; J1815; J1940; J2060; J3475; J3490; J7040; J7050; J7060; J7070; Q9967